=== PATIENT | female | born 1985 | race Asian ===

== ENCOUNTER → 2016-05-18 | Outpatient (CLI) | payer MEDICAID | LOC: FIMAGING 19:03 | PROVIDERS: ATTEND Family Medicine | DX: Z87.81 Personal history of (healed) traumatic fracture (principal) ==

== ENCOUNTER 2016-07-11 18:31 | Emergency (ER) | payer MEDICAID ==
[2016-07-11 18:48] VITALS: BP 141/93; PULSE 85; RESP 16; TEMP 97.5; O2SAT 96
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
== END 2016-07-11 19:50 | disposition home or self-care (01) ==
DX: S16.1XXA Strain of muscle, fascia and tendon at neck level, initial encounter (principal); X50.0XXA Overexertion from strenuous movement or load, initial encounter

== ENCOUNTER → 2016-07-21 | Outpatient (CLI) | payer MEDICAID | LOC: FIMAGING 18:16 | PROVIDERS: ATTEND Family Medicine | DX: M54.2 Cervicalgia (principal) ==

== ENCOUNTER 2017-05-29 06:20 | Inpatient (IN) | payer MEDICAID ==
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
[2017-05-29] MEDS ORDERED: ceFAZolin 2 GM/DEXTROSE 100 ML IV ONE (06:43)
[2017-05-29] MEDS ORDERED: CITRIC ACID/SODIUM CITRATE 30 ML UDCUP PO ONE ×2 (06:43→07:24)
[2017-05-29] MEDS ORDERED: LR 1,000 ML IV SCH (06:43)
[2017-05-29] MEDS ORDERED: LR 500 ML IV ONE (06:43)
[2017-05-29 06:57] LABS: PLATELET COUNT 148 10^3/uL (150-400)
[2017-05-29] MEDS ORDERED: ceFAZolin 2 GM/SWFI 2 GM/20 ML SYR IVP ONE (07:00)
--- NOTE | 2017-05-29 07:15 | PDMN ---
Medical Necessity Medical necessity: Pt meets IP criteria per DO; admit for Labor & Delivery/C- Section; per H&P & order 05/29/17
--- NOTE | 2017-05-29 07:20 | PREANESOB ---
Obstetric Pre-Anesthesia Info - General Info Proposed Procedure: C/S NPO Start Time: 21:00 : 2 Para: 1 WOODY: 06/05/17 Gestational Age: 39 week(s) and 0 day(s) - Info Status: Full Term - Labor Status Indications for Current Section: Elective/Repeat Labor Epidural: No Anesthesia Allergies/Adverse Reactions: Allergy/AdvReac Type Severity Reaction Status Date / Time No Allergies [NKDA] Allergy Verified 05/18/17 15:31 Visit Medications: Generic Name Dose Route Start Last Admin Trade Name Freq PRN Reason Stop Dose Admin Lactated Ringer's 1,000 mls @ 125 mls/hr 05/29/17 06:43 Lr IV 05/30/17 06:42 CONT HIEU Discontinued Medications Generic Name Dose Route Start Last Admin Trade Name Freq PRN Reason Stop Dose Admin Citric Acid/Sodium Citrate 30 ml 05/29/17 06:43 Bicitra PO 05/29/17 06:44 ONCALL ONE Lactated Ringer's 500 mls @ 0 mls/hr 05/29/17 06:43 Lr IV 05/29/17 06:44 ONCE ONE As Directed Cefazolin Sodium 2 gm in 20 mls @ 200 mls/hr 05/29/17 07:00 Cefazolin Syringe IVP 05/29/17 07:05 ONCALL ONE - Anesthesia History Response to Local Anesthetics: Normal Anesthesia & Operative History: No Prior Problems Family Anesthesia History: Not Applicable - Social History Substance Use/Abuse: Denies - Vital Signs Latest Vital Signs (Nursing): Temp Pulse Resp BP Pulse Ox 37 C 79 16 99/66 L 94 05/29/17 07:05 05/29/17 07:05 05/29/17 07:05 05/29/17 07:05 05/29/17 07:05 Height/Weight (Nursing): Height 158.75 cm Weight 62.596 kg - Focused Exam Neck exam: FROM Mallampati Score: Class 2 Mouth exam: normal dental/mouth exam Pulmonary: no respiratory distress Cardiovascular: regular rate and rhythym Labs: 05/29/17 06:35 - Plan Anesthetic Plan: SAB-- GA backup Consent Signed and on Chart: Yes Patient/Guardian Understands and Agrees to Plan: Yes
[2017-05-29] MEDS ORDERED: fentaNYL 100 MCG/2 ML INJ ONE (07:30)
[2017-05-29] MEDS ORDERED: morphINE PF 5 MG/10 ML INJ ONE (07:32)
[2017-05-29] MEDS ORDERED: OXYTOCIN 100 UNITS/10 ML VIAL ONE (07:57)
[2017-05-29] MEDS ORDERED: PHENYLEPHRINE HCL 100 MCG/ML SYR ONE (07:57)
[2017-05-29] MEDS ORDERED: MISOPROSTOL 200 MCG TAB ONE (08:14)
[2017-05-29] MEDS ORDERED: NALOXONE HCL 0.4 MG/ML INJ IVP PRN (08:28)
[2017-05-29] MEDS ORDERED: PHENYLEPHRINE HCL 100 MCG/ML SYR IVP PRN (08:28)
[2017-05-29] MEDS ORDERED: HYDROmorphONE/DILAUDID 2 MG/ML INJ IVP PRN (08:28)
[2017-05-29] MEDS ORDERED: ONDANSETRON 4 MG/2 ML VIAL IVP PRN (08:28)
[2017-05-29] MEDS ORDERED: fentaNYL 100 MCG/2 ML INJ IVP PRN (08:28)
[2017-05-29] MEDS ORDERED: HYDROCODONE/APAP 5/325 TAB PO PRN (08:28)
[2017-05-29] MEDS ORDERED: OXYCODONE/APAP 5/325 TAB PO PRN (08:28)
[2017-05-29] MEDS ORDERED: KETOROLAC 30 MG/1 ML SDV ONE (08:39)
[2017-05-29] MEDS ORDERED: PROMETHAZINE HCL 25 MG/ML INJ IVP PRN (09:22)
[2017-05-29] MEDS ORDERED: BISACODYL 10 MG SUPP PR PRN (09:22)
[2017-05-29] MEDS ORDERED: LACTULOSE 20 GM/30 ML UDCUP PO PRN (09:22)
[2017-05-29] MEDS ORDERED: POLYETHYLENE GLYCOL 3350 17 GM PKT PO PRN (09:22)
[2017-05-29] MEDS ORDERED: MAGNESIUM HYDROXIDE 30 ML UDCUP PO PRN (09:22)
[2017-05-29] MEDS ORDERED: SIMETHICONE 80 MG TAB CHEW PO PRN (09:22)
--- NOTE | 2017-05-29 09:25 | OBDEL ---
Info Type: Repeat Presentation at Delivery: Vertex L&D Analgesia/Anesthesia Type: Spinal GBS+: No Intrapartum Medications: Discontinued Medications Generic Name Dose Route Start Last Admin Trade Name Shahbaz PRN Reason Stop Dose Admin Citric Acid/Sodium Citrate 30 ml 05/29/17 06:43 05/29/17 07:25 Bicitra PO 05/29/17 06:44 30 ml ONCALL ONE Administration Cefazolin Sodium 2 gm in 20 mls @ 200 mls/hr 05/29/17 07:00 05/29/17 07:30 Cefazolin Syringe IVP 05/29/17 07:05 20 mls ONCALL ONE Administration - Infant Care Provider Polymer Scientist/ORDER CHECKER PACKER PROCESSER: Selina Felipe Indications for Delivery: Elective (Previous c/s, declines trial of labor) Operative Report - Delivery Pre-op Diagnoses: IUP @ 39 weeks with previous c/s, declines a trial of labor Post-op Diagnoses: IUP @ 39 weeks with previous c/s, declines a trial of labor History of Prior Section: Yes Number of Prior Sections: 1 Nulliparous Prior to Delivery: No Indications for Prior Section: Other (Specify) (Failed IOL) Indications for Current Section: Elective/Repeat Procedure: Scheduled, Low Transverse Surgeon: Pippa Jones Photography Manager: Angelika West Anesthesiologist: Romel Mcgovern Complications: None Findings: A viable female born at 0813 in cephalic presentation, LOT with 9 and 9 Apgars. Cord clamping delayed x 60 seconds. Cord then clamped x 2 and cut. handed to waiting ORDER CHECKER PACKER PROCESSER. Cord blood obtained. Placenta delivered manually intact with 3-vc. Grossly normal appearing uterus, tubes and ovaries. Omental adhesions noted on anterior uterus. Specimen(s)/Path: Other (Specify) (none) IV Fluid (ml): 1,600 EBL: 800 cc UO: 100 cc clear urine Data WOODY: 06/05/17 Gestational Age: 39 week(s) and 0 day(s) Blunt Delivery Date: 05/29/17 Delivery Time: 08:13 Sex of : Female Score (1 Min): 9 Score (5 Min): 9 ICD10 Worksheet Patient Problems: Problems Problem Status Onset Previous delivery affecting Acute Status post repeat low transverse section Acute - ICD10 Problem Qualifiers (1) Previous delivery affecting (2) Status post repeat low transverse section
[2017-05-29] MEDS ORDERED: OXYTOCIN 10 UNIT/ML VIAL ONE (09:42)
[2017-05-29] MEDS: KETOROLAC 30 MG/1 ML SDV IVP SCH ×2 (14:28→20:24)
--- NOTE | 2017-05-29 16:33 | POSTANESTH ---
Post Anesthetic Evaluation Cardiovascular Status: Normal, Stable, Similar to Pre-Op Cond Respiratory Status: Normal, Stable, Similar to Pre-op Cond. Level of Consciousness/Mental Status: Can Participate in Eval, Alert and Oriented Pain Control: Adequate, Prn Tx Ordered Nausea/Vomiting Control: Adequate, Prn Tx Ordered Complications Possibly Related to Anesthesia: None Noted
--- NOTE | 2017-05-29 19:05 | GOP ---
[f rep st] OPERATIVE REPORT DATE OF OPERATION: 05/29/2017 SURGEON: Pippa Jones DO [employer] OFFICER: Angelika West MD. ANESTHESIA: Spinal. ANESTHESIOLOGIST: Dr. Romel Mcgovern. PREOPERATIVE DIAGNOSIS: 1. Intrauterine at 39 weeks. 2. Previous section, declines trial of labor. POSTOPERATIVE DIAGNOSIS: 1. Intrauterine at 39 weeks. 2. Previous section, declines a trial of labor. PROCEDURE PERFORMED: Repeat low transverse section. FINDINGS: A viable female born at 0815 in cephalic presentation, left occiput transverse, with 9 and 9 Apgars. Delayed cord clamping x 60 seconds was done. Cord then clamped x2 and cut. Infant handed to [facility]. Cord blood obtained. The placenta delivered manually intact with three-vessel cord. Grossly normal-appearing uterus, tubes, and ovaries. There were omental adhesions noted to uterus anteriorly. SPECIMENS: None. ESTIMATED BLOOD LOSS: 800 cc. INDICATIONS: Patient is a 31-year-old 2, para 1-0-0-1, at 39 weeks with a history of a previous secondary to failed induction. The patient desires a repeat at this time, declines a trial of labor. We discussed the risks, benefits, alternatives of the procedure including, but not limited to, infection, bleeding, and damage to surrounding organs. The patient understands all risks of the procedure and wants to proceed at this time. Informed consent was obtained prior to proceeding with the surgery. DESCRIPTION OF PROCEDURE: The patient was taken to the operating room where spinal anesthesia was obtained without difficulty. The patient was prepped and draped in the usual sterile fashion. Patient was placed in dorsal supine position with a leftward tilt. A WHO time-out was performed. After adequate anesthesia was noted, a Pfannenstiel skin incision was then made with a scalpel through the old incision, and carried through to the underlying layer of fascia using Bovie. Fascia was incised in the midline and extended laterally using Hannon scissors. Colby clamps were then used to elevate the superior aspect of the fascial incision which was elevated and underlying rectus muscles dissected off bluntly using Hannon scissors. Attention was then turned to the inferior aspect of the fascial incision which in a similar fashion was grasped with Colby clamps, elevated, and the underlying rectus muscles dissected off bluntly and using Hannon scissors. Rectus muscles were then dissected in the midline. There was noted to be some scar tissue here. The peritoneum was then sharply dissected, entered, and extended superiorly and inferiorly with good visualization of the bladder. Bladder blade was inserted. There was noted to be some scar tissue of the bladder to the uterus. A bladder flap was not created. The lower uterine segment was then incised in a transverse fashion using scalpel and extended using manual traction anteriorly and posteriorly. Light meconium was noted upon entry into the amniotic sac. The was subsequently delivered atraumatically. The cord was delayed clamping for 60 seconds. Cord was then clamped x2 and cut. was handed to the awaiting nursery nurse. Cord blood was obtained. Placenta was then removed manually intact with 3-vessel cord. Uterus was exteriorized, and cleared of all clots and debris. There were noted to be trailing membranes and these were removed. The uterine incision was then repaired in 2 layers using 0 Vicryl suture. Second layer was an imbricating stitch of 0 Vicryl suture. Hemostasis was noted. The uterus was then returned to the abdomen. The uterine incision was noted to be oozing, so Alanna was placed on the incision. The gutters were then cleared of all debris and clots. We looked again at the uterine incision and it appeared hemostatic. Rectus muscles were then reapproximated in the midline using 3-0 Vicryl. The fascia was then closed with 0 Vicryl in a running fashion. Hemostasis was noted. The skin was then closed with 4-0 Vicryl on a Anthony needle. Sponge, lap, needle, and instrument counts correct x2. Patient tolerated the procedure well. No complications. The patient was then stable at the completion of procedure and transferred to recovery room in stable condition. COMPLICATIONS: None. IV FLUIDS: 1600 cc of LR. URINE OUTPUT: 100 cc of clear urine at the end of the procedure. /[id number]/MODL MTDD
[2017-05-29] MEDS: SENNOSIDES/DOCUSATE SODIUM TAB PO SCH (20:24)
[2017-05-30] MEDS: KETOROLAC 30 MG/1 ML SDV IVP SCH ×2 (02:22→08:40)
--- NOTE | 2017-05-30 11:46 | OBPP ---
Progress Note Assessment/Plan: Assessment: POD 1 s/p RCS Plan: routine care 05/30/17 11:43 Subjective/ Course: 05/30/17 11:43 Pt doing well. States pain really improved with [place] at 8:30. Bld is small. urinated fine after cath removed. able to amb without dizziness. no nausea and velvet reg food. baby has latched several times and working with . Objective: 05/30/17 04:30 Patient ABO/Rh O POSITIVE 05/29/17 06:35 Temp Pulse Resp BP Pulse Ox 36.6 C 88 16 103/72 91 L 05/30/17 08:00 05/30/17 08:00 05/30/17 08:00 05/30/17 08:00 05/30/17 08:00 Uterine Position/Fundal Height: Umbilicus -1 Uterine Tone: Firm Physical Exam - Physical Exam Abdomen: non-tender (approp post op tenderness), soft, other (bandage in place - old marked drainage from last noc - no extension. FF at umb -1) Extremities: non-tender, pedal edema (mild) Skin: normal color, warm/dry Neuro/Psych: alert, normal mood/affect
[2017-05-30] MEDS: HYDROCODONE/APAP 5/325 TAB PO PRN ×3 (12:36→21:37)
[2017-05-30] MEDS: DOCUSATE SODIUM 100 MG CAP PO PRN ×2 (12:37→20:01)
[2017-05-30] MEDS: SENNOSIDES/DOCUSATE SODIUM TAB PO SCH (12:37)
[2017-05-30] MEDS: IBUPROFEN 600 MG TAB PO PRN ×2 (16:39→22:47)
--- NOTE | 2017-05-30 17:11 | POSTANESTH ---
Post Anesthetic Evaluation Cardiovascular Status: Normal, Stable, Similar to Pre-Op Cond Respiratory Status: Normal, Stable, Similar to Pre-op Cond. Level of Consciousness/Mental Status: Can Participate in Eval, Alert and Oriented Pain Control: Adequate, Prn Tx Ordered Nausea/Vomiting Control: Adequate, Prn Tx Ordered Complications Possibly Related to Anesthesia: None Noted Notes: PPD 1 s/p C/S. Spinal has resolved completely, no apparent negative SE. Denies NEVILLE/n/v. Had pruritis which resolved with benadryl. Ambulates w/o difficulty. Back site c/d/i. Plan- Pain control per OB. Spinal resolved.
[2017-05-31] MEDS: IBUPROFEN 600 MG TAB PO PRN ×3 (04:13→16:59)
[2017-05-31] MEDS: HYDROCODONE/APAP 5/325 TAB PO PRN ×4 (04:14→18:34)
[2017-05-31] MEDS: SENNOSIDES/DOCUSATE SODIUM TAB PO SCH ×3 (04:20→20:58)
--- NOTE | 2017-05-31 15:00 | OBPP ---
Progress Note Assessment/Plan: Assessment: 31 y/o POD #2 s/p Rpt LTCS doing well. Plan: Abdominal binder. Continue [place] and Ibuprofen prn. Pt may shower and ambulate with assistance. support. 05/31/17 15:00 Subjective/ Course: 05/30/17 11:43 Pt doing well. States pain really improved with [place] at 8:30. Bld is small. urinated fine after cath removed. able to amb without dizziness. no nausea and velvet reg food. baby has latched several times and working with . 05/31/17 14:57 Pt is doing well. She reports good pain control with [place] and Ibuprofen. She is ambulating and voiding without difficulty and has min lochia. Breast feeding is going well and baby is doing well. Objective: 05/30/17 04:30 Patient ABO/Rh O POSITIVE 05/29/17 06:35 Temp Pulse Resp BP Pulse Ox 37.0 C 79 18 105/86 H 92 05/31/17 08:25 05/31/17 08:25 05/31/17 08:25 05/31/17 08:25 05/31/17 08:25 Uterine Position/Fundal Height: Umbilicus -2 Uterine Tone: Firm Physical Exam - Physical Exam General Appearance: WD/WN, alert, no apparent distress Neck: non-tender, full range of motion, supple Respiratory: chest non-tender, lungs clear, normal breath sounds Cardiac/Chest: regular rate, rhythm Abdomen: normal bowel sounds, incision (c/d/i) Extremities: swelling (no), Steven's sign (neg)
[2017-06-01] MEDS: IBUPROFEN 600 MG TAB PO PRN ×2 (02:52→10:03)
[2017-06-01] MEDS: HYDROCODONE/APAP 5/325 TAB PO PRN ×2 (05:57→10:05)
[2017-06-01 08:26] VITALS: TEMP 98
[2017-06-01 08:28] VITALS: BP 108/73; PULSE 66; RESP 17; O2SAT 94
--- NOTE | 2017-06-01 09:10 | OBGCSDC ---
General Delivery Information - General Info : 2 Para: 2 Abortions: 0 Type: Repeat L&D Analgesia/Anesthesia Type: Spinal Admission Date: 05/29/17 Labs: Patient ABO/Rh O POSITIVE 05/29/17 06:35 Hct 36.0 % (38.0-47.0) L 05/30/17 04:30 - Hospital Course : 05/30/17 11:43 Pt doing well. States pain really improved with [place] at 8:30. Bld is small. urinated fine after cath removed. able to amb without dizziness. no nausea and velvet reg food. baby has latched several times and working with . 05/31/17 14:57 Pt is doing well. She reports good pain control with [place] and Ibuprofen. She is ambulating and voiding without difficulty and has min lochia. Breast feeding is going well and baby is doing well. 06/01/17 09:07 S) Pt doing well, reports min pain and bleeding. she is ambulating and voiding without difficulty. She reports +BM. She is . O) VSS, afebrile constitutional: WNWF, A&Ox3 HEENT: normocephalic, atraumatic, supple Heart: RRR, No murmur Chest: CTA-B Abdomen: Soft, nontender incision: healing well Uterus: Firm at U-2 Lochia: Minimal rubra Perineum: Intact Extremities: Trace edema, and negative Steven's sign Neuro: Grossly normal A) 31-year-old S/P repeat c/s POD#3 P) Discharge home today Continue Pelvic rest x6wks Discussed danger signs (infection, preeclampsia, depression, heavy bleeding, etc ) RTO in 2/4/6 weeks - Delivery Providers Surgeon: Pippa Jones Correctional Guard: Angelika West Anesthesiologist: Romel Mcgovern - Delivery Number of Prior Sections: 1 Indications for Current Section: Elective/Repeat Surgical Procedures: Scheduled, Low Transverse Intra-op Complications: None EBL: 800 cc UO: 100 cc clear urine Data WOODY: 06/05/17 Gestational Age: 39 week(s) and 3 day(s) Blunt Delivery Date: 05/29/17 Delivery Time: 08:13 Sex of : Female Weight (gm): 3442 g Score (1 Min): 9 Score (5 Min): 9 Discharge Information - Discharge Information Condition: Good Instruction/Follow Up: Two Weeks, Four Weeks, Six Weeks
[2017-06-01] MEDS: SENNOSIDES/DOCUSATE SODIUM TAB PO SCH (10:06)
== END 2017-06-01 15:00 | disposition home or self-care (01) | DRG 766 ==
LOC: FLD 06:20 → FOB 10:30
PROVIDERS: ADMIT Obstetrics & Gynecology; ATTEND Obstetrics & Gynecology
PROC: 10D00Z1 Extraction of Products of Conception, Low, Open Approach (ICD-10-PCS; principal; 2017-05-29)
DX: O34.219 Maternal care for unspecified type scar from previous cesarean delivery (principal); Z87.81 Personal history of (healed) traumatic fracture; Z3A.39 39 weeks gestation of pregnancy; Z37.0 Single live birth
CPT/HCPCS: J0690; J1200; J1885; J2270; J2274; J2370; J2590; J3010